=== PATIENT | male | born 1955 | race Caucasian/White ===

== ENCOUNTER 2020-03-02 14:17 | Emergency (ER) | payer BC, MEDICARE ==
--- NOTE | 2020-03-02 18:05 | CRLCR ---
Indication: Finger laceration Technique: Three views left 2nd digit Comparison: None Findings/impression: Soft tissue laceration of the left 2nd finger tip with a few small bone fragments arising from the distal tuft of the distal phalanx. No radiopaque foreign body. Dictated by Marlene Love MD @ Mar 02 2020 6:02PM Signed by Dr. Marlene Love @ Mar 02 2020 6:04PM
[2020-03-02] MEDS ORDERED: Diphtheria,Pertussis(Acell),Tetanus Vaccine 0.5 ML SDV IM ONE (18:41)
[2020-03-02] MEDS ORDERED: Bacitracin Oint 1 GM U/D Packet TOP ONE (18:41)
[2020-03-02] MEDS ORDERED: Bacitracin Oint 1 GM U/D Packet ONE (18:42)
--- NOTE | 2020-03-02 18:45 | EDM.PDOC ---
ED HPI GENERAL MEDICAL PROBLEM - General Chief Complaint: Upper Extremity Injury/Pain Stated Complaint: CUT FINGER ON LEFT HAND Time Seen by Provider: 03/02/20 17:30 Source of Information: Reports: Patient History Limitations: Reports: No Limitations - History of Present Illness INITIAL COMMENTS - FREE TEXT/NARRATIVE: Doing this is a 64-year-old male who presents with a left second finger tip avulsion injury. He had a leather glove on and was brushing today but got his hand into the circular blade of his suede brusher. This took off the tip of his left pointer finger. He is left-hand dominant. He initially had significant bleeding but is now irrigated the wound extensively and that has subsided. He has normal function of the finger. left finger Pain Score (Numeric/FACES): 3 - Related Data Allergies Allergy/AdvReac Type Severity Reaction Status Date / Time Penicillins Allergy Anaphylactic Verified 03/02/20 15:06 Shock Home Meds: Home Meds NK [No Known Home Meds] 03/02/20 [History] Past Medical History - Past Health History Medical/Surgical History: Denies Medical/Surgical History Musculoskeletal History: Reports: Fracture Social & Family History - Tobacco Use Smoking Status *Q: Current Every Day Smoker Years of Tobacco use: 45 Packs/Tins Daily: 0.2 - Caffeine Use Caffeine Use: Reports: Coffee, Soda - Recreational Drug Use Recreational Drug Use: No Review of Systems - Review of Systems Review Of Systems: See Below Constitutional: Reports: No Symptoms Eyes: Reports: No Symptoms Ears: Reports: No Symptoms Nose: Reports: No Symptoms Mouth/Throat: Reports: No Symptoms Respiratory: Reports: No Symptoms Cardiovascular: Reports: No Symptoms GI/Abdominal: Reports: No Symptoms Genitourinary: Reports: No Symptoms Musculoskeletal: Reports: No Symptoms Skin: Reports: Wound Neurological: Reports: No Symptoms Psychiatric: Reports: No Symptoms ED EXAM, GENERAL - Physical Exam Exam: See Below Exam Limited By: No Limitations General Appearance: Alert, No Apparent Distress Ears: Normal External Exam Nose: Normal Inspection Throat/Mouth: Normal Inspection Head: Atraumatic, Normocephalic Neck: Normal Inspection Respiratory/Chest: No Respiratory Distress Cardiovascular: Regular Rate, Rhythm GI/Abdominal: No Distention Back Exam: Normal Inspection Extremities: Other (The left pointer finger has an avulsed tip, the injury is quite ragged and involves the fingernail bed of the left pointer finger. There is some broken fingernail left intact.) Neurological: Alert, Oriented Psychiatric: Normal Affect, Normal Mood Skin Exam: Warm, Dry ED TRAUMA EXTREMITY PROCEDURES - Laceration/Wound Repair Left Digit - 2nd (Index) Appearance: Irregular Anesthetic Type: Digital Local Anesthesia - Lidocaine (Xylocaine): 1% Plain Skin Prep: Chlorhexidine (Hibiciens) Exploration/Debridement/Repair: Wound Explored Sterile Dressing Applied: Nurse Tetanus Status Addressed: Yes Complications: No Progress/Comments: After administering a digital block the left nail was removed. There was avulsion of the left fingertip without any apparent involvement of bone. There was significant damage to the left pointer finger nail bed distally. The avulsion injury was reapproximated and loosely closed. I used two 6-0 Vicryl sutures. The nail was then laid back over the nailbed and injury and loosely reattached with a single suture to act as a protective shield for the nailbed. Course - Vital Signs Last Recorded V/S: Last Vital Signs Temp 36.4 C 03/02/20 15:05 Pulse 120 H 03/02/20 15:05 Resp 16 03/02/20 15:05 BP 143/105 H 03/02/20 15:05 Pulse Ox 95 03/02/20 15:05 - Orders/Labs/Meds Orders: Active Orders 24 hr Category Date Time Status Vaccines to be Administered [RC] PER UNIT ROUTINE Care 03/02/20 18:41 Active Meds: Medications Discontinued Medications Generic Name Dose Route Start Last Admin Trade Name Kelley PRN Reason Stop Dose Admin Bacitracin 1 dose 03/02/20 18:41 03/02/20 18:59 Bacitracin Oint 1 Gm TOP 03/02/20 18:42 1 dose ONETIME ONE Administration Bacitracin Confirm 03/02/20 18:42 03/02/20 18:59 Bacitracin Oint 1 Gm Administered 03/02/20 18:43 Not Given Dose 1 dose .ROUTE .STK-MED ONE Diphtheria/Tetanus/Acell Pertussis 0.5 ml 03/02/20 18:41 03/02/20 18:55 Adacel IM 03/02/20 18:42 0.5 ml .ONCE ONE Administration - Re-Assessments/Exams Free Text/Narrative Re-Assessment/Exam: This is a 64-year-old male who presents with a left pointer fingertip avulsion injury. Injury was repaired as above. Given the nail bed involvement I did remove the left nail and then sutured back in place for protection. His tetanus status was addressed. We extensively discussed returning for signs of infection. He is going to follow-up with a hand surgeon early next week. 03/02/20 20:02 Departure - Departure Time of Disposition: 18:30 Disposition: Home, Self-Care 01 Clinical Impression: Fingertip avulsion Qualifiers: Encounter type: initial encounter Qualified Code(s): S61.209A - Unspecified open wound of unspecified finger without damage to nail, initial encounter - Discharge Information Instructions: Nail Bed Injury, [id number] Referrals: PCP,None [Primary Care Provider] - Forms: ED Department Discharge Additional Instructions: Please call the hand clinic below tomorrow to arrange a follow-up appointment early next week: - this is the [facility] in [place] Monitor the finger for increased redness, pain, swelling, or discharge as this may be a sign of infection. If these occur please see a physician. Keep the area dry for the next 2-3 days (ie cover when in the shower) Sepsis Event Note (ED) - Evaluation Sepsis Screening Result: No Definite Risk - Focused Exam Vital Signs: Vital Signs Temp Pulse Resp BP Pulse Ox 03/02/20 15:05 36.4 C 120 H 16 143/105 H 95 03/02/20 15:01 36.4 C 120 H 16 143/105 H 95 - My Orders Last 24 Hours: My Active Orders 03/02/20 18:41 Vaccines to be Administered [RC] PER UNIT ROUTINE - Assessment/Plan Last 24 Hours: My Active Orders 03/02/20 18:41 Vaccines to be Administered [RC] PER UNIT ROUTINE
== END 2020-03-02 18:59 | disposition home or self-care (01) ==
LOC: JP.ED 14:17
DX: S61.311A Laceration without foreign body of left index finger with damage to nail, initial encounter (principal); F17.210 Nicotine dependence, cigarettes, uncomplicated; Z23 Encounter for immunization; Z88.0 Allergy status to penicillin; W26.8XXA Contact with other sharp object(s), not elsewhere classified, initial encounter
CPT/HCPCS: 11730; 73140-F1; 90471; 90715; 99283; 99283-25